=== PATIENT | male | born 1980 | race African-American/Black ===

== ENCOUNTER 2024-03-26 17:16 | Emergency (ER) | payer SELFPAY ==
[2024-03-27 12:24] LABS: SARS-CoV-2 N1 Negative; SARS-CoV-2 N2 Negative; SARS-CoV-2 RNAse P1 Positive
== END 2024-03-26 18:00 | disposition home or self-care (01) ==
LOC: NAV ERS 17:16
DX: J01.90 Acute sinusitis, unspecified (principal); F17.290 Nicotine dependence, other tobacco product, uncomplicated
CPT/HCPCS: 87635; 99283

== ENCOUNTER 2025-07-05 09:32 | Emergency (ER) | payer SELFPAY ==
[2025-07-05] MEDS ORDERED: Ibuprofen 800 MG TAB ONE (09:52)
== END 2025-07-05 09:55 | disposition home or self-care (01) ==
LOC: NAV ERS 09:32
DX: K04.7 Periapical abscess without sinus (principal); F17.210 Nicotine dependence, cigarettes, uncomplicated
CPT/HCPCS: 99282